=== PATIENT | female | born 1970 | race Caucasian/White ===

== ENCOUNTER 2017-06-27 12:52 | Emergency (ER) | payer MEDICARE, MEDICAID ==
--- NOTE | 2017-06-27 13:24 | ER Document Report ---
ED Medical Screen (RME) - General Chief Complaint: Chest Pain Stated Complaint: NECK PAIN Time Seen by Provider: 06/27/17 13:21 Notes: Patient presents with right-sided chest pain goes into her neck. This is been going on for several days. Patient states that she had lung resection in February of this year for cancer. She was told that she did not require chemo or radiation and that she was cancer free after the surgery. She states she does not feel more short of breath than normal. She states she is concerned that she may have a return of the cancer. TRAVEL OUTSIDE OF THE [place] IN LAST 30 DAYS: No - Related Data Allergies/Adverse Reactions: Penicillins Allergy (Verified 06/27/17 12:56) rash Past Medical History - Social History Frequency of alcohol use: None Drug Abuse: None - Past Medical History Cardiac Medical History: Reports: Hx Congestive Heart Failure - "early stage" Pulmonary Medical History: Reports: Hx COPD Renal/ Medical History: Denies: Hx Peritoneal Dialysis Psychiatric Medical History: Reports: Hx Anxiety, Hx Depression Traumatic Medical History: Reports: Hx Fractures, Hx Pneumothorax Past Surgical History: Reports: Hx Hysterectomy - Immunizations Hx Diphtheria, Pertussis, Tetanus Vaccination: Yes - 2011 Physical Exam - Vital signs Vitals: Temp Pulse Resp BP Pulse Ox 98.4 F 111 H 16 123/94 H 98 06/27/17 13:00 06/27/17 13:00 06/27/17 13:00 06/27/17 13:00 06/27/17 13:00 Course - Vital Signs Vital signs: Temp Pulse Resp BP Pulse Ox 98.4 F 111 H 16 123/94 H 98 06/27/17 13:00 06/27/17 13:00 06/27/17 13:00 06/27/17 13:00 06/27/17 13:00
[2017-06-27 14:11] LABS: ABSOLUTE BASOPHILS # (AUTO) 0.1 10^3/uL (0.0-0.2); ABSOLUTE EOSINOPHILS # (AUTO) 0.2 10^3/uL (0.0-0.6); ABSOLUTE LYMPHOCYTES (AUTO) 1.5 10^3/uL (0.5-4.7); ABSOLUTE MONOCYTES (AUTO) 0.4 10^3/uL (0.1-1.4); BASOPHILS % (AUTO) 0.8 % (0-2); EOSINOPHILS % (AUTO) 1.9 % (0-6); HEMATOCRIT 41.1 % (36.0-47.0); HEMOGLOBIN 14.2 g/dL (12.0-15.5); HGB HCT DIFFERENCE 1.5; LYMPHOCYTES % (AUTO) 16.4 % (13-45); MEAN CORPUSCULAR HEMOGLOBIN 29.9 pg (27.0-33.4); MEAN CORPUSCULAR HGB CONC 34.5 g/dL (32.0-36.0); MEAN CORPUSCULAR VOLUME 87 fl (80-97); MONOCYTES % (AUTO) 3.9 % (3-13); RED BLOOD COUNT 4.74 10^6/uL (3.72-5.28); RED CELL DISTRIBUTION WIDTH 15.7 % (11.5-14.0); WHITE BLOOD COUNT 9.1 10^3/uL (4.0-10.5)
[2017-06-27 14:25] LABS: ALANINE AMINOTRANSFERASE 19 U/L (9-52); ALBUMIN 4.4 g/dL (3.5-5.0); ALKALINE PHOSPHATASE 62 U/L (38-126); ANION GAP 9 (5-19); ASPARTATE AMINO TRANSFERASE 15 U/L (14-36); BILIRUBIN,DIRECT 0.5 mg/dL (0.0-0.4); BILIRUBIN,TOTAL 0.5 mg/dL (0.2-1.3); BLOOD UREA NITROGEN 17 mg/dL (7-20); CALCIUM 9.9 mg/dL (8.4-10.2); CARBON DIOXIDE 29 mmol/L (22-30); CHLORIDE 100 mmol/L (98-107); CREATININE RESULT 0.58 mg/dL (0.52-1.25); GLUCOSE 102 mg/dL (75-110); POTASSIUM 4.9 mmol/L (3.6-5.0); SODIUM 138.4 mmol/L (137-145); TOTAL PROTEIN 7.1 g/dL (6.3-8.2)
[2017-06-27] MEDS ORDERED: MORPHINE SULFATE 10 MG/ML INJ IV ONE (15:15)
--- NOTE | 2017-06-27 15:37 | ER Document Report ---
ED Cardiac - General Chief Complaint: Chest Pain Stated Complaint: NECK PAIN Time Seen by Provider: 06/27/17 13:21 Mode of Arrival: Ambulatory Information source: Patient TRAVEL OUTSIDE OF THE [place] IN LAST 30 DAYS: No - HPI Patient complains to provider of: Chest pain, Shortness of breath Quality of pain: Achy Severity now: Moderate Severity at worst: Moderate Chest pain precipitating factors: At Rest Cardiac risk factors: Smoker Positive cardiac history: No Associated symptoms: Shortness of breath Exacerbated by: Coughing, Deep breaths Relieved by: Nothing Similar symptoms previously: Yes Notes: Patient is a 47-year-old female with a history of lung cancer and emphysema, who continues to smoke, who presents to the emergency room today complaining of chest pain has been worsening over the past 3-4 weeks with shortness of breath, nonproductive cough, pain is worsened with deep breaths, palpation of the chest or certain movements, she does report a history of lung cancer with a right lung resection that was performed in February of this year at [facility], she did not receive any chemotherapy or radiation therapy - Related Data Allergies/Adverse Reactions: Penicillins Allergy (Verified 06/27/17 12:56) rash Past Medical History - General Information source: Patient - Social History Smoking Status: Current Every Day Smoker Frequency of alcohol use: None Drug Abuse: None Family History: Reviewed & Not Pertinent Patient has suicidal ideation: No Patient has homicidal ideation: No - Past Medical History Cardiac Medical History: Reports: Hx Congestive Heart Failure - "early stage" Pulmonary Medical History: Reports: Hx COPD Renal/ Medical History: Denies: Hx Peritoneal Dialysis Psychiatric Medical History: Reports: Hx Anxiety, Hx Depression Traumatic Medical History: Reports: Hx Fractures, Hx Pneumothorax Past Surgical History: Reports: Hx Hysterectomy - Immunizations Hx Diphtheria, Pertussis, Tetanus Vaccination: Yes - 2011 Review of Systems - Review of Systems Constitutional: No symptoms reported EENT: No symptoms reported Cardiovascular: See HPI Respiratory: See HPI Gastrointestinal: No symptoms reported Genitourinary: No symptoms reported Female Genitourinary: No symptoms reported Musculoskeletal: No symptoms reported Skin: No symptoms reported Hematologic/Lymphatic: No symptoms reported Neurological/Psychological: No symptoms reported -: Yes All other systems reviewed and negative Physical Exam - Vital signs Vitals: Temp Pulse Resp BP Pulse Ox 98.4 F 111 H 16 123/94 H 98 06/27/17 13:00 06/27/17 13:00 06/27/17 13:00 06/27/17 13:00 06/27/17 13:00 Interpretation: Normal - General General appearance: Appears well, Alert - HEENT Head: Normocephalic, Atraumatic Eyes: Normal Conjunctiva: Normal Extraocular movements intact: Yes Eyelashes: Normal Pupils: PERRL - Respiratory Respiratory status: No respiratory distress Chest status: Tender - Tender to palpate in the right anterior chest wall Breath sounds: Normal Chest palpation: Normal - Cardiovascular Rhythm: Regular, Tachycardia Heart sounds: Normal auscultation Murmur: No - Abdominal Inspection: Normal Distension: No distension Bowel sounds: Normal Tenderness: Nontender Organomegaly: No organomegaly - Back Back: Normal, Nontender - Extremities General upper extremity: Normal inspection, Nontender, Normal color, Normal ROM , Normal temperature General lower extremity: Normal inspection, Nontender, Normal color, Normal ROM , Normal temperature, Normal weight bearing. No: Faith's sign - Neurological Neuro grossly intact: Yes Cognition: Normal Orientation: AAOx4 Alyssia Coma Scale Eye Opening: Spontaneous Alyssia Coma Scale Verbal: Oriented [place] Coma Scale Motor: Obeys Commands [place] Coma Scale Total: 15 Speech: Normal Motor strength normal: LUE, RUE, LLE, RLE Sensory: Normal - Psychological Associated symptoms: Normal affect, Normal mood - Skin Skin Temperature: Warm Skin Moisture: Dry Skin Color: Normal Course - Re-evaluation Re-evalutation: 06/27/17 18:17 Patient was discussed with duct layer at [facility], Dr. Christopher Zavala, who reviewed her previous records and confirm she did have a right middle lobe resection in February of this year, and at that time the cancer was thought to be completely resected, on imaging since then she was noted to have a pericardial effusion and a nodule in the left upper lobe measuring approximately 6 mm so today's measuring shows this to be smaller, patient was informed of these findings, advised to call [facility] tomorrow morning and attempt to move up her appointment that is scheduled in August to be seen sooner, she will be provided with pain medication and a copy of her CT scan on disc for follow-up, and advised to return if any additional concerns, patient acknowledges understanding and agreement with this plan - Vital Signs Vital signs: Temp Pulse Resp BP Pulse Ox 97.8 F 111 H 16 111/64 91 L 06/27/17 19:09 06/27/17 13:00 06/27/17 19:09 06/27/17 19:09 06/27/17 19:09 - Laboratory Result Diagrams: 06/27/17 13:57 06/27/17 13:57 Laboratory results interpreted by me: 06/27/17 06/27/17 13:57 13:57 RDW 15.7 H Direct Bilirubin 0.5 H - Diagnostic Test Radiology reviewed: Image reviewed, Reports reviewed - EKG Interpretation by Me EKG shows normal: Sinus rhythm Rate: Tachycardia Discharge - Discharge Clinical Impression: Chest wall pain, Pericardial effusion, Pulmonary nodule Condition: Stable Disposition: HOME, SELF-CARE Instructions: Chest Wall Pain ([facility]), Growth or Mass, Pending Workup ([facility]), Oral Narcotic Medication ([facility]) Additional Instructions: Follow up with your primary care provider in one to 2 days. Return to the emergency room immediately if symptoms worsen or any additional concerns. Prescriptions: Oxycodone HCl/Acetaminophen [Percocet 5-325 mg Tablet] 1 - 2 tab PO ASDIR PRN # 30 tablet PRN Reason: Forms: Smoking Cessation Education
--- NOTE | 2017-06-27 15:48 | RADIOLOGY REPORT (SQ) ---
EXAM DESCRIPTION: CTA CHEST COMPLETED DATE/TIME: 06/27/2017 3:16 pm REASON FOR STUDY: hx cancer/lung resect/pain COMPARISON: Chest CT 06/26/2015. Chest radiograph 02/09/2016 TECHNIQUE: CT scan of the chest performed using helical scanning technique with dynamic intravenous contrast injection. Images reviewed with lung, soft tissue and bone windows. Reconstructed coronal and sagittal MPR images reviewed. Additional 3 dimensional post-processing performed to develop Maximal Intensity Projection images (AZ P). All images stored on PACS. All CT scanners at this facility use dose modulation, iterative reconstruction, and/or weight based d osing when appropriate to reduce radiation dose to as low as reasonably achievable (ALARA). [facility]: Dose Right [facility]: CareDose [facility]: Dose Right [facility]: Teradose 4D [facility]: [employer] CONTRAST TYPE AND DOSE: contrast/concentration: Isovue 370.00 mg/ml; Total Contrast Delivered: 54.0 ml; Total Saline Delivered: 95.0 ml RENAL FUNCTION: GFR > 60. RADIATION DOSE: Up-to-date CT equipment and radiation dose reduction techniques were employed. CTDIv ol: 13.2 - 14.3 mGy. DLP: 512 mGy-cm. . LIMITATIONS: None. FINDINGS: LUNGS AND PLEURA: In diffuse mosaic pattern in the lungs. Scarring in the right apex. Ne w pulmonary nodule left upper lobe image 21 series 4 measuring 3.8 mm. AORTA AND GREAT VESSELS: No aneurysm or dissection. HEART: Pericardial effusion. PULMONARY ARTERIES: No emboli visualized in the main pulmonary arteries or the segmental branches. HILAR AND MEDIASTINAL STRUCTURES: No identified masses or abnormal nodes. HARDWARE: None in the chest. UPPER ABDOMEN: No significant findings. Limited exam. THYROID AND OTHER SOFT TISSUES: No masses. No adenopathy. BONES: No acute or significant finding. 3D MIPS: Confirm above findings. OTHER: No other significant finding. IMPRESSION: Scarring in the right apex. New pulmonary nodule measuring 3.8 mm in the left upper lobe. Pericardial effusion. No pulmonary emboli. Nonspecific mosaic pattern in the lungs. TECHNICAL DOCUMENTATION: JOB ID: [id number] Quality ID # [id number]: Final reports with documentation of one or more dose reduction techniques (e.g., Au tomated exposure control, adjustment of the mA and/or kV according to patient size, use of iterative reconstruction technique) 2010 [employer] All Rights Reserved
[2017-06-27] MEDS ORDERED: HYDROMORPHONE HCL INJ/PF 2 MG/ML AMPULE IV ONE (17:54)
[2017-06-27] MEDS ORDERED: ALBUTEROL SULFATE 0.083% NEB 2.5 MG/3 ML AMPUL NEB ONE (18:20)
[2017-06-27 19:15] VITALS: BP 111/64
--- NOTE | 2017-06-27 21:12 | EKG REPORT ---
SEVERITY:- ABNORMAL ECG - SINUS TACHYCARDIA SYL, CONSIDER BIATRIAL ABNORMALITIES CONSIDER RIGHT VENTRICULAR HYPERTROPHY : Confirmed by: Javon Strickland 27-Jun-2017 21:11:00
== END 2017-06-27 19:14 | disposition home or self-care (01) ==
LOC: ER 12:52
DX: I31.3 Pericardial effusion (noninflammatory) (principal); R91.1 Solitary pulmonary nodule; J43.9 Emphysema, unspecified; R07.89 Other chest pain; R06.02 Shortness of breath; R05 Cough; R00.0 Tachycardia, unspecified; F17.200 Nicotine dependence, unspecified, uncomplicated; Z85.118 Personal history of other malignant neoplasm of bronchus and lung; Z90.2 Acquired absence of lung [part of]; Z88.0 Allergy status to penicillin
CPT/HCPCS: 93005; 94640; 99284; 96374; 96375; 36415; 85025; 80053; 84484; 71275; 93010; J2270; J1170; A9270